=== PATIENT | male | born 1985 | race Caucasian/White ===

== ENCOUNTER 2020-06-12 13:34 | Outpatient (CLI) | payer OTHER ==
[~2020-06-12] VITALS: Ht 177.8 cm; Wt 90.7 kg
[2020-06-12] MEDS ORDERED: albuterol 2.5 MG/3 ML nebule NEB PRN (14:15)
== END 2020-06-12 23:59 | disposition home or self-care (01) ==
LOC: RT 13:34
PROVIDERS: ATTEND Orthopaedic Surgery
DX: R06.02 Shortness of breath (principal)
CPT/HCPCS: 71046; 94060; 94760